=== PATIENT | female | born 1980 | race American Indian/Alaskan Native ===

== ENCOUNTER 2019-10-15 21:32 | Emergency (ER) | payer BC ==
[2019-10-15] MEDS ORDERED: predniSONE 20 MG TAB PO ONE (22:54)
--- NOTE | 2019-10-15 23:42 | XRay Report ---
CHEST 2 VIEWS INDICATION / CLINICAL INFORMATION: Cough. COMPARISON: None available. FINDINGS: SUPPORT DEVICES: None. HEART / MEDIASTINUM: No significant abnormality. LUNGS / PLEURA: No significant pulmonary or pleural abnormality. No pneumothorax. ADDITIONAL FINDINGS: No significant additional findings. IMPRESSION: 1. No acute findings. Signer Name: Slim Herrera MD Signed: 10/15/2019 11:37 PM Workstation Name: [id number]
--- NOTE | 2019-10-16 00:36 | Emergency Department Report ---
- General Chief Complaint: Upper Respiratory Infection Stated Complaint: COUGH Source: patient Mode of arrival: Ambulatory Limitations: No Limitations - History of Present Illness Initial Comments: Patient is a 39-year-old -[place] female with no past medical history except hypertension who presents to the ED with complaint of acute onset persistent nasal and sinus congestion, persistent cough productive of yellowish phlegm for the last 3 weeks. Patient denies fever, chills, nausea, vomiting, chest pain, shortness of breath, sore throat, dizziness, syncope, abdominal pain, change in vision or diarrhea. Patient states that no one else at home is had similar symptoms. MD Complaint: cough, rhinorrhea, nasal congestion -: Sudden, week(s) (3) Severity: mild Severity scale (0 -10): 2 Quality: dull, aching Consistency: intermittent Improves With: nothing Worsens With: nothing Associated Symptoms: denies other symptoms, rhinorrhea, nasal congestion, cough. denies: fever, chills, diaphoresis, headache, sore throat, shortness of breath, abdominal pain, nausea, diarrhea, dysuria, rash, right sweats, weight loss, epistaxis, hoarseness Treatments Prior to Arrival: none - Related Data Previous Rx's Medication Instructions Recorded Last Taken Type Azithromycin [Zithromax Z-EM] 250 mg PO DAILY #6 tablet 10/16/19 Unknown Rx Benzonatate [Tessalon Perles] 100 mg PO Q8HR #30 capsule 10/16/19 Unknown Rx Cetirizine HCl [Zyrtec 10mg tab] 10 mg PO DAILY #30 tablet 10/16/19 Unknown Rx methylPREDNISolone [Medrol 4MG 4 mg PO DAILY #21 tab.ds.pk 10/16/19 Unknown Rx DOSEPAK (21 tabs)] ED Review of Systems ROS: Stated complaint: COUGH Other details as noted in HPI Constitutional: denies: chills, fever Eyes: denies: eye pain, eye discharge, vision change ENT: congestion. denies: ear pain, throat pain Respiratory: cough. denies: shortness of breath, wheezing Cardiovascular: denies: chest pain, palpitations Endocrine: no symptoms reported Gastrointestinal: denies: abdominal pain, nausea, diarrhea Genitourinary: denies: urgency, dysuria, discharge Musculoskeletal: denies: back pain, joint swelling, arthralgia Skin: denies: rash, lesions Neurological: denies: headache, weakness, paresthesias Psychiatric: denies: anxiety, depression Hematological/Lymphatic: denies: easy bleeding, easy bruising ED Past Medical Hx - Past Medical History Hx Hypertension: Yes - Surgical History Additional Surgical History: - Social History Smoking Status: Never Smoker Substance Use Type: Alcohol - Medications Home Medications: Home Medications Medication Instructions Recorded Confirmed Last Taken Type Azithromycin [Zithromax Z-EM] 250 mg PO DAILY #6 tablet 10/16/19 Unknown Rx Benzonatate [Tessalon Perles] 100 mg PO Q8HR #30 capsule 10/16/19 Unknown Rx Cetirizine HCl [Zyrtec 10mg tab] 10 mg PO DAILY #30 tablet 10/16/19 Unknown Rx methylPREDNISolone [Medrol 4MG 4 mg PO DAILY #21 tab.ds.pk 10/16/19 Unknown Rx DOSEPAK (21 tabs)] ED Physical Exam - General Limitations: No Limitations General appearance: alert, in no apparent distress - Head Head exam: Present: atraumatic, normocephalic, normal inspection - Eye Eye exam: Present: normal appearance, PERRL, EOMI Pupils: Present: normal accommodation - ENT ENT exam: Present: normal orophraynx, mucous membranes moist, TM's normal bilaterally, normal external ear exam, other (Grossly congested nasal passages) - Neck Neck exam: Present: normal inspection, full ROM - Respiratory Respiratory exam: Present: normal lung sounds bilaterally. Absent: respiratory distress, wheezes, rales, chest wall tenderness, accessory muscle use, decreased breath sounds - Cardiovascular Cardiovascular Exam: Present: regular rate, normal rhythm, normal heart sounds. Absent: systolic murmur, diastolic murmur, rubs, gallop - GI/Abdominal GI/Abdominal exam: Present: soft, normal bowel sounds. Absent: tenderness, guarding, hyperactive bowel sounds, hypoactive bowel sounds, organomegaly - Extremities Exam Extremities exam: Present: normal inspection, full ROM, normal capillary refill - Back Exam Back exam: Present: normal inspection, full ROM. Absent: tenderness, CVA tenderness (R), CVA tenderness (L), muscle spasm, paraspinal tenderness - Neurological Exam Neurological exam: Present: alert, oriented X3, CN II-XII intact, normal gait, reflexes normal - Psychiatric Psychiatric exam: Present: normal affect, normal mood - Skin Skin exam: Present: warm, dry, intact, normal color. Absent: rash ED Course Vital Signs 10/15/19 21:34 Temperature 97.9 F Pulse Rate 99 H Respiratory 18 Rate Blood Pressure 151/58 O2 Sat by Pulse 100 Oximetry ED Medical Decision Making - Radiology Data Radiology results: report reviewed, image reviewed Chest x-ray shows no acute cardiopulmonary abnormalities or pneumonitis. - Medical Decision Making This is a 39-year-old female with a history of hypertension who presented to the ED with nasal and sinus congestion and persistent cough with white-yellowish phlegm for the last 3 weeks despite taking [id number] medications. In the ED, patient is alert and oriented x3 and is not in distress with stable vital signs. In the ED, patient was treated with oral prednisone and chest x-ray shows no acute cardiopulmonary abnormalities or pneumonitis. Patient was discharged home on medications and advised to follow-up with her primary care physician in 7 to 10 days for reevaluation. Patient symptoms are likely due to acute bronchitis from persistent upper respiratory infection. The risk factors at this time for coronavirus infection is minimal. - Differential Diagnosis Pneumonia; Bronchitis; URI Critical care attestation.: If time is entered above; I have spent that time in minutes in the direct care of this critically ill patient, excluding procedure time. ED Disposition Clinical Impression: Acute upper respiratory infection Acute bronchitis Qualifiers: Bronchitis organism: other organism Qualified Code(s): J20.8 - Acute bronchitis due to other specified organisms Disposition: DC-01 TO HOME OR SELFCARE Is pt being admited?: No Does the pt Need Aspirin: No Condition: Stable Instructions: Acute Bronchitis (ED), Upper Respiratory Infection (ED) Additional Instructions: Take medication with food, drink plenty of fluids and follow-up with your primary care physician in 7 to 10 days for reevaluation. Your chest x-ray is normal and does not show any abnormalities or pneumonitis. Return to the ED immediately if symptoms get worse. Prescriptions: methylPREDNISolone [Medrol 4MG DOSEPAK (21 tabs)] 4 mg PO DAILY #21 tab.ds.pk Benzonatate [Tessalon Perles] 100 mg PO Q8HR #30 capsule Azithromycin [Zithromax Z-EM] 250 mg PO DAILY #6 tablet Cetirizine HCl [Zyrtec 10mg tab] 10 mg PO DAILY #30 tablet Referrals: DANA CRUZ [Primary Care Provider] - 3-5 Days Time of Disposition: 00:36 Print Language: GREENLANDIC
[2019-10-16 00:51] VITALS: BP 154/92
== END 2019-10-16 00:50 | disposition home or self-care (01) ==
LOC: ED 21:32
DX: J06.9 Acute upper respiratory infection, unspecified (principal); J20.9 Acute bronchitis, unspecified; I10 Essential (primary) hypertension; Z79.899 Other long term (current) drug therapy
CPT/HCPCS: 71046; 99283; J7512

== ENCOUNTER 2020-05-22 12:44 | Emergency (ER) | payer BC ==
--- NOTE | 2020-05-22 13:05 | Event Note ---
ED Screening Note ED Screening Note: 39-year-old obese Pakistani female presents emergency department complaining of dysfunctional uterine bleeding currently under the care of her of [facility] [employer]PERATOR for menorrhagia. She was started on hormonal therapy to improve which she has been taking for the last 1.5 weeks but the symptoms have not yet res olved she feels that the symptoms may have actually worsened. She reports no pain. No fevers chills or sweats. She reports no trauma and has been taking all medication as prescribed with no complication she was advised by her her DRY MILL OPERATOR to come to the emergency department for evaluation and treatment options. She did state that she did receive a pelvic ultrasound 2 weeks ago. This initial assessment/diagnostic orders/clinical plan/treatment(s) is/are subject to change based on patients health status, clinical progression and re- assessment by fellow clinical providers in the ED. Further treatment and workup at subsequent clinical providers discretion. Patient/guardian urged not to elope from the ED as their condition may be serious if not clinically assessed and managed. Initial orders include:
[2020-05-22 14:08] LABS: Hematocrit 26.9 % (30.3-42.9); Hemoglobin 8.3 gm/dl (10.1-14.3); Mean Corpuscular HGB Conc 31 % (30-34); Platelet Count 440 K/mm3 (140-440); Red Blood Count 4.29 M/mm3 (3.65-5.03)
[2020-05-22 14:14] LABS: INR 1.02 (0.87-1.13)
[2020-05-22 14:31] LABS: Mean Corpuscular Volume 63 fl (79-97)
[2020-05-22 15:12] LABS: Total Cells Counted 100
[2020-05-22 15:13] LABS: Basophils % (Manual) 0 % (0.0-1.8); Hypochromasia 2+
[2020-05-22 15:14] LABS: Platelet Estimate Consistent w Auto
--- NOTE | 2020-05-22 16:05 | Ultrasound Report ---
ULTRASOUND PELVIS INDICATION: menorrhagia. TECHNIQUE: Transabdominal and Transvaginal. Duplex Color Doppler used: Yes. COMPARISON: None available FINDINGS: Uterus: Present. Size: 11.8 x 5.6 x 7.9 cm. Endometrial complex: Normal measuring 0.8 cm. Mass lesions: None. Additional findings: None. Right Ovary: Surgically absent. Left Ovary: Size: 3.6 x 2.2 x 2.9 cm Blood flow: Normal. Cyst or mass: None. Urinary Bladder: Normal. Free Fluid: None. Additional Findings: None. IMPRESSION: 1. No acute sonographic abnormality of the pelvis. Signer Name: Tomy Woodson MD Signed: 05/22/2020 4:00 PM Workstation Name: [id number]
--- NOTE | 2020-05-22 18:32 | Emergency Department Report ---
ED Female HPI - General Chief complaint: Vaginal Bleeding Stated complaint: LOSING BLOOD Time Seen by Provider: 05/22/20 18:11 Source: patient Mode of arrival: Ambulatory Limitations: No Limitations - History of Present Illness Initial comments: 39-year-old obese Japanese female presents emergency department complaining of dysfunctional uterine bleeding currently under the care of her of [employer] for menorrhagia. She was started on hormonal therapy to improve which she has been taking for the last 1.5 weeks but the symptoms have not yet r esolved she feels that the symptoms may have actually worsened. She reports no pain. No fevers chills or sweats. She reports no trauma and has been taking all medication as prescribed with no complication she was advised by her her [employer] to come to the emergency department for evaluation and treatment options. She did state that she did receive a pelvic ultrasound 2 weeks ago. MD Complaint: vaginal bleeding - Related Data Previous Rx's Medication Instructions Recorded Last Taken Type Azithromycin [Zithromax Z-EM] 250 mg PO DAILY #6 tablet 10/16/19 Unknown Rx Benzonatate [Tessalon Perles] 100 mg PO Q8HR #30 capsule 10/16/19 Unknown Rx Cetirizine HCl [Zyrtec 10mg tab] 10 mg PO DAILY #30 tablet 10/16/19 Unknown Rx methylPREDNISolone [Medrol 4MG 4 mg PO DAILY #21 tab.ds.pk 10/16/19 Unknown Rx DOSEPAK (21 tabs)] Allergies Allergy/AdvReac Type Severity Reaction Status Date / Time No Known Allergies Allergy Unverified 10/16/19 00:46 ED Review of Systems ROS: Stated complaint: LOSING BLOOD Other details as noted in HPI Constitutional: denies: chills, fever Eyes: denies: eye pain, eye discharge, vision change ENT: denies: ear pain, throat pain Respiratory: denies: cough, shortness of breath, wheezing Cardiovascular: denies: chest pain, palpitations Endocrine: no symptoms reported Gastrointestinal: denies: abdominal pain, nausea, diarrhea Genitourinary: other (vaginal bleeding ). denies: urgency, dysuria, discharge Musculoskeletal: denies: back pain, joint swelling, arthralgia Skin: denies: rash, lesions Neurological: denies: headache, weakness, paresthesias Psychiatric: denies: anxiety, depression Hematological/Lymphatic: denies: easy bleeding, easy bruising ED Past Medical Hx - Past Medical History Previous Medical History?: Yes Hx Hypertension: Yes - Surgical History Past Surgical History?: Yes Additional Surgical History: - Social History Smoking Status: Never Smoker Substance Use Type: None - Medications Home Medications: Home Medications Medication Instructions Recorded Confirmed Last Taken Type Azithromycin [Zithromax Z-EM] 250 mg PO DAILY #6 tablet 10/16/19 Unknown Rx Benzonatate [Tessalon Perles] 100 mg PO Q8HR #30 capsule 10/16/19 Unknown Rx Cetirizine HCl [Zyrtec 10mg tab] 10 mg PO DAILY #30 tablet 10/16/19 Unknown Rx methylPREDNISolone [Medrol 4MG 4 mg PO DAILY #21 tab.ds.pk 10/16/19 Unknown Rx DOSEPAK (21 tabs)] ED Physical Exam - General Limitations: No Limitations General appearance: alert, in no apparent distress - Head Head exam: Present: atraumatic, normocephalic - Eye Eye exam: Present: normal appearance - ENT ENT exam: Present: mucous membranes moist - Neck Neck exam: Present: normal inspection, full ROM. Absent: tenderness - Respiratory Respiratory exam: Present: normal lung sounds bilaterally. Absent: respiratory distress, wheezes, stridor, chest wall tenderness - Cardiovascular Cardiovascular Exam: Present: regular rate, normal rhythm. Absent: systolic murmur, diastolic murmur, rubs, gallop - GI/Abdominal GI/Abdominal exam: Present: soft, normal bowel sounds. Absent: distended, tenderness, guarding, rebound, rigid, bruit, hernia - Rectal Rectal exam: Present: deferred - Extremities Exam Extremities exam: Present: normal inspection, full ROM, normal capillary refill. Absent: tenderness - Back Exam Back exam: Present: normal inspection, full ROM. Absent: tenderness, CVA tenderness (R), CVA tenderness (L), vertebral tenderness, rash noted - Neurological Exam Neurological exam: Present: alert, oriented X3, CN II-XII intact, normal gait, reflexes normal. Absent: motor sensory deficit - Psychiatric Psychiatric exam: Present: normal affect, normal mood - Skin Skin exam: Present: warm, dry, intact, normal color. Absent: rash ED Course Vital Signs 05/22/20 12:52 Temperature 98.4 F Pulse Rate 85 Respiratory 16 Rate Blood Pressure 142/87 [Right] O2 Sat by Pulse 98 Oximetry ED Medical Decision Making - Lab Data Result diagrams: 05/22/20 13:32 Labs 05/22/20 05/22/20 13:32 13:32 WBC 7.2 RBC 4.29 Hgb 8.3 L Hct 26.9 L MCV 63 L MCH 19 L MCHC 31 RDW 20.0 H Plt Count 440 Baso % (Auto) Knife Grinder Add Manual Diff Complete Total Counted 100 Seg Neuts % (Manual) 80.0 H Band Neutrophils % 0 Lymphocytes % (Manual) 15.0 Reactive Lymphs % (Man) 0 Monocytes % (Manual) 4.0 Eosinophils % (Manual) 1.0 Basophils % (Manual) 0 Metamyelocytes % 0 Myelocytes % 0 Promyelocytes % 0 Blast Cells % 0 Nucleated RBC % Not Reportable Seg Neutrophils # Man 5.8 Band Neutrophils # 0.0 Lymphocytes # (Manual) 1.1 L Abs React Lymphs (Man) 0.0 Monocytes # (Manual) 0.3 Eosinophils # (Manual) 0.1 Basophils # (Manual) 0.0 Metamyelocytes # 0.0 Myelocytes # 0.0 Promyelocytes # 0.0 Blast Cells # 0.0 WBC Morphology Not Reportable Hypersegmented Neuts Not Reportable Hyposegmented Neuts Not Reportable Hypogranular Neuts Not Reportable Smudge Cells Not Reportable Toxic Granulation Not Reportable Toxic Vacuolation Not Reportable Dohle Bodies Not Reportable Pelger-Huet Anomaly Not Reportable Lance Rods Not Reportable Platelet Estimate Consistent w auto Clumped Platelets Not Reportable Plt Clumps, EDTA Not Reportable Large Platelets Not Reportable Giant Platelets Not Reportable Platelet Satelliting Not Reportable Plt Morphology Comment Not Reportable RBC Morphology Not Reportable Dimorphic RBCs Not Reportable Polychromasia Few Hypochromasia 2+ Poikilocytosis Not Reportable Anisocytosis Not Reportable Microcytosis 2+ Macrocytosis Not Reportable Spherocytes Not Reportable Pappenheimer Bodies Not Reportable Sickle Cells Not Reportable Target Cells Not Reportable Tear Drop Cells Not Reportable Ovalocytes Not Reportable Helmet Cells Not Reportable [place] Bodies Not Reportable [place] Rings Not Reportable [place] Cells Not Reportable Bite Cells Not Reportable Crenated Cell Not Reportable Elliptocytes Not Reportable Acanthocytes (Spur) Not Reportable Rouleaux Not Reportable Hemoglobin C Crystals Not Reportable Schistocytes Not Reportable Malaria parasites Not Reportable [place] Bodies Not Reportable Hem Pathologist Commnt No PT 13.6 INR 1.02 - Radiology Data Radiology results: report reviewed, image reviewed Findings Reporting MD: Tomy Woodson Dictation Time: May 22, 2020 15:00 Health Data Analyst: Not available Program Technician Date: ULTRASOUND PELVIS INDICATION: menorrhagia. TECHNIQUE: Transabdominal and Transvaginal. Duplex Color Doppler used: Yes. COMPARISON: None available FINDINGS: Uterus: Present. Size: 11.8 x 5.6 x 7.9 cm. Endometrial complex: Normal measuring 0.8 cm. Mass lesions: None. Additional findings: None. Right Ovary: Surgically absent. Left Ovary: Size: 3.6 x 2.2 x 2.9 cm Blood flow: Normal. Cyst or mass: None. Urinary Bladder: Normal. Free Fluid: None. Additional Findings: None. IMPRESSION: 1. No acute sonographic abnormality of the pelvis. Signer Name: Tomy Woodson MD Signed: 05/22/2020 3:00 PM Workstation Name: [id number] Findings Reporting MD: Tomy Woodson Dictation Time: May 22, 2020 15:00 Transcri ptionist: Not available Program Technician Date: ULTRASOUND PELVIS INDICATION: menorrhagia. TECHNIQUE: Transabdominal and Transvaginal. Duplex Color Doppler used: Yes. COMPARISON: None available FINDINGS: Uterus: Present. Size: 11.8 x 5.6 x 7.9 cm. Endometrial complex: Normal measuring 0.8 cm. Mass lesions: None. Additional findings: None. Right Ovary: Surgically absent. Left Ovary: Size: 3.6 x 2.2 x 2.9 cm Blood flow: Normal. Cyst or mass: None. Urinary Bladder: Normal. Free Fluid: None. Additional Findings: None. IMPRESSION: 1. No acute sonographic abnormality of the pelvis. Signer Name: Tomy Woodson MD Signed: 05/22/2020 3:00 PM Workstation Name: [email or web address] [id number] - Medical Decision Making Ultrasound normal no mass no cyst right ovary is surgically removed left is intact, there is no mass, no , H/H 8.3/26.9, UA: norm, HGG: noted patient currently on Provera therapy 10 mg daily, patient denies pain patient denies dizziness, no shortness of breath, no fever chills, no abdominal pain. Patient has follow-up [employer] tomorrow, patient advised to follow-up with [facility] continue to take Provera as prescribed continue to take iron therapy as prescribed, Critical care attestation.: If time is entered above; I have spent that time in minutes in the direct care of this critically ill patient, excluding procedure time. ED Disposition Clinical Impression: Abnormal uterine bleeding (AUB) Disposition: TO HOME OR SELFCARE Is pt being admited?: No Does the pt Need Aspirin: No Condition: Stable Instructions: Abnormal Uterine Bleeding Referrals: [facility] [Provider Group] - 3-5 Days Forms: Work/School Release Form(ED) Time of Disposition: 19:06
[2020-05-22 18:49] LABS: HCG Qualitative,Urine Negative (Negative)
[2020-05-22 18:55] LABS: Bacteria,Urine 1+ /HPF (Negative); Bilirubin,Urine NEG (Negative); Blood,Urine LG (Negative); Color,Urine Yellow (Yellow); Mucus,Urine 1+ /HPF; RBC,Urine > 182.0 /HPF (0.0-6.0)
[2020-05-22 19:33] VITALS: BP 138/82
== END 2020-05-22 19:34 | disposition home or self-care (01) ==
LOC: ED 12:44
DX: N93.9 Abnormal uterine and vaginal bleeding, unspecified (principal); I10 Essential (primary) hypertension; Z79.899 Other long term (current) drug therapy
CPT/HCPCS: 36415; 76830; 76856; 81001; 81025; 85007; 85025; 85610